=== PATIENT | male | born 1985 | race Caucasian/White ===

== ENCOUNTER 2018-02-25 11:51 | Emergency (ER) | payer BC ==
[~2018-02-25] VITALS: Ht 165.1 cm; Wt 65.9 kg
[2018-02-25 12:03] VITALS: Ht 165.1 cm; Wt 65.9 kg
[2018-02-25] MEDS ORDERED: HYDROCORTISONE30 G9 TOPICAL (12:33)
[2018-02-25] MEDS ORDERED: TORADOL10 MG PO (12:33)
[2018-02-25 12:48] VITALS: BP 139/92
== END 2018-02-25 12:49 | disposition home or self-care (01) ==
LOC: D.ER 11:51
DX: K64.4 Residual hemorrhoidal skin tags (principal); K59.00 Constipation, unspecified

== ENCOUNTER 2018-03-01 10:49 | Emergency (ER) | payer BC ==
[~2018-03-01] VITALS: Ht 165.1 cm; Wt 59.1 kg
[~2018-03-01 10:49] MED LIST: HYDROCORTISONE30 G9 TOPICAL; TORADOL10 MG PO
[2018-03-01 11:15] VITALS: Ht 165.1 cm; Wt 59.1 kg
[2018-03-01 12:00] VITALS: BP 112/062
== END 2018-03-01 12:02 | disposition home or self-care (01) ==
LOC: D.ER 10:49
DX: K64.5 Perianal venous thrombosis (principal); F17.200 Nicotine dependence, unspecified, uncomplicated